=== PATIENT | female | born 1965 | race Caucasian/White ===

== ENCOUNTER 2020-10-14 21:36 | Emergency (ER) | payer OTHER ==
[2020-10-14] MEDS ORDERED: diphenhydrAMINE 12.5 MG/5 ML Liquid 5 ML UD Cup PO STA (22:45)
[2020-10-14] MEDS ORDERED: Lidocaine 2% Viscous Solution 15 ML Cup PO ONE (22:45)
[2020-10-14] MEDS ORDERED: Aluminum Hydroxide/Magnesium Hydroxide/Simethicone Susp 30 ML Cup PO ONE (22:45)
[2020-10-14] MEDS ORDERED: Amoxicillin/Clavulanate K 875-125 MG Tab PO STA (22:48)
--- NOTE | 2020-10-14 23:06 | EDM.PDOC ---
ED HPI GENERAL MEDICAL PROBLEM - General Chief Complaint: General Stated Complaint: R) SIDE OF FACE SWOLLEN Time Seen by Provider: 10/14/20 22:36 Source of Information: Reports: Patient History Limitations: Reports: No Limitations - History of Present Illness INITIAL COMMENTS - FREE TEXT/NARRATIVE: This patient is a 55 year old female that presents to the ER. Patient reports talbot ving swelling and dental pain right upper side. Patient reports applying ice at home. Onset: Today Onset Date: 10/14/20 Duration: Hour(s): (12) Location: Reports: Face Quality: Reports: Ache Severity: Mild Improves with: Reports: None Worsens with: Reports: None Associated Symptoms: Reports: No Other Symptoms Treatments TRANSFER MAN: Reports: Cold Therapy - Related Data Allergies Allergy/AdvReac Type Severity Reaction Status Date / Time No Known Allergies Allergy Verified 10/14/20 21:57 Home Meds: Home Meds Amoxicillin/Potassium Clav [Augmentin 875-125 Tablet] 1 each PO BID 10 Days #20 tablet 10/14/20 [Rx] Past Medical History [employer]IC[employer] History: Reports: - Infectious Disease History Infectious Disease History: Reports: None - Past Surgical History HEENT Surgical History: Reports: Adenoidectomy, Tonsillectomy Social & Family History - Tobacco Use Tobacco Use Status *Q: Current Every Day Tobacco User Years of Tobacco use: 20 Packs/Tins Daily: 0.2 - Caffeine Use Caffeine Use: Reports: Coffee, Soda - Recreational Drug Use Recreational Drug Use: No ED ROS GENERAL - Review of Systems Review Of Systems: See Below Constitutional: Reports: No Symptoms HEENT: Reports: Dental Pain, Other (face swelling). Denies: Ear Discharge, Ear Pain, Eye Discharge, Eye Pain, Nose Pain, Rhinitis, Sinus Problem, Vertigo Respiratory: Reports: No Symptoms Cardiovascular: Reports: No Symptoms Endocrine: Reports: No Symptoms GI/Abdominal: Reports: Nausea. Denies: Abdominal Pain, Vomiting : Reports: No Symptoms Musculoskeletal: Reports: No Symptoms Skin: Reports: No Symptoms Neurological: Reports: No Symptoms Psychiatric: Reports: No Symptoms Hematologic/Lymphatic: Reports: No Symptoms Immunologic: Reports: No Symptoms ED EXAM, GENERAL - Physical Exam Exam: See Below Exam Limited By: No Limitations General Appearance: Alert, WD/WN, No Apparent Distress Eye Exam: Bilateral Eye: EOMI, Normal Inspection, PERRL Ears: Normal External Exam, Normal Canal, Hearing Grossly Normal, Normal TMs Ear Exam: Bilateral Ear: Auricle Normal, Canal Normal, TM normal Nose: Normal Inspection, Normal Mucosa, No Blood Throat/Mouth: Normal Inspection, Normal Lips, Normal Oropharynx, Normal Voice, No Airway Compromise, Other (right upper and right lower dental decay severe. Mild swelling upper right, with small abscess. No trismus. No facial cellultiits. ) Head: Atraumatic, Normocephalic Neck: Normal Inspection, Supple, Non-Tender, Full Range of Motion Respiratory/Chest: No Respiratory Distress, Lungs Clear, Normal Breath Sounds, No Accessory Muscle Use Cardiovascular: Normal Peripheral Pulses, Regular Rate, Rhythm, No Edema, No Gallop, No JVD, No Murmur, No Rub Peripheral Pulses: 2+: Radial (L), Radial (R) Neurological: Alert, Oriented Psychiatric: Normal Affect, Normal Mood Skin Exam: Warm, Dry, Intact, Normal Color, No Rash Lymphatic: No Adenopathy Course - Vital Signs Last Recorded V/S: Last Vital Signs Temp 97.7 F 10/14/20 21:36 Pulse 98 10/14/20 21:36 Resp 18 10/14/20 21:36 BP 143/80 H 10/14/20 21:36 Pulse Ox 96 10/14/20 21:36 - Orders/Labs/Meds Meds: Medications Discontinued Medications Generic Name Dose Route Start Last Admin Trade Name Bjq PRN Reason Stop Dose Admin Al Hydroxide/Mg Hydroxide 30 ml 10/14/20 22:45 10/14/20 23:10 Aluminum Hydroxide/Magnesium Hydroxide/Simethicone Susp 30 Ml Cup PO 10/14/20 22:46 30 ml ONETIME ONE Administration Amoxicillin/Clavulanate Potassium 1 tab 10/14/20 22:48 10/14/20 23:10 Amoxicillin/Clavulanate K 875-125 Mg Tab PO 10/14/20 22:49 1 tab NOW STA Administration Diphenhydramine HCl 25 mg 10/14/20 22:45 10/14/20 23:10 Diphenhydramine 12.5 Mg/5 Ml Liquid 5 Ml Ud Cup PO 10/14/20 22:46 25 mg NOW STA Administration Lidocaine HCl 15 ml 10/14/20 22:45 10/14/20 23:10 Lidocaine 2% Viscous Solution 15 Ml Cup PO 10/14/20 22:46 15 ml ONETIME ONE Administration Departure - Departure Time of Disposition: 23:02 Disposition: Home, Self-Care 01 Condition: Fair Clinical Impression: Dental abscess - Discharge Information *PRESCRIPTION DRUG MONITORING PROGRAM REVIEWED*: Not Applicable *COPY OF PRESCRIPTION DRUG MONITORING REPORT IN PATIENT ZOË: Not Applicable Prescriptions: Amoxicillin/Potassium Clav [Augmentin 875-125 Tablet] 1 each PO BID 10 Days #20 tablet Instructions: Dental Abscess, [id number] Referrals: PCP,None [Primary Care Provider] - Forms: ED Department Discharge Additional Instructions: Followup with dentist Followup with primary care provider as needed Return to the ER for Emergencies Ice to area if swelling starts Tylenol and/or Motrin for pain Dental balls as needed for pain every 4-6 hours as needed: SENT HOME Augmentin 875mg 1 pill twice a day for 10 days #20 no refill ([facility]) Sepsis Event Note (ED) - Evaluation Sepsis Screening Result: No Definite Risk - Focused Exam Vital Signs: Vital Signs Temp Pulse Resp BP Pulse Ox 10/14/20 21:36 97.7 F 98 18 143/80 H 96 - Assessment/Plan Plan: PLEASE SEE RN NOTE FOR PFSH
== END 2020-10-14 23:24 | disposition home or self-care (01) ==
LOC: CC.ED 21:36
DX: K04.7 Periapical abscess without sinus (principal); K02.9 Dental caries, unspecified; Z72.0 Tobacco use
CPT/HCPCS: 99282; A9270-GY